=== PATIENT | female | born 1940 | race Caucasian/White ===

== ENCOUNTER 2017-03-11 16:38 | Outpatient (CLI) ==
[2017-03-11 16:52] LABS: BASOPHILS # (AUTO) 0.1 K/uL (0-0.2); BASOPHILS % (AUTO) 0.8 % (0.0-3.0); EOSINOPHILS # (AUTO) 0.3 K/ul (0.0-0.7); EOSINOPHILS % (AUTO) 4.7 % (0.0-7.0); HEMOGLOBIN 14.4 g/dl (12.0-16.0); IMMATURE GRANULOCYTE % (AUTO) 0.3 % (0.0-5.0); LYMPHOCYTES # (AUTO) 1.6 K/uL (0.60-3.4); LYMPHOCYTES % (AUTO) 22.9 (10.0-50.0); MEAN CORPUSCULAR HEMOGLOBIN 28.6 pg (27.0-31.0); MEAN CORPUSCULAR HGB CONC 32.7 (31.8-35.4); MEAN CORPUSCULAR VOLUME 87.3 fl (81.0-99.0); MONOCYTES # (AUTO) 0.6 K/uL (0.4-2.0); MONOCYTES % (AUTO) 7.9 (0-10); NEUTROPHILS # (AUTO) 4.5 K/ul (2.0-6.9); NEUTROPHILS % (AUTO) 63.4; PLATELET COUNT 309 10^3/uL (140-440); RED BLOOD COUNT 5.04 10^6/ul (4.20-5.40); WHITE BLOOD COUNT 7.17 K/ul (4.6-10.2)
[2017-03-11 16:53] LABS: BILIRUBIN,URINE Negative (NEGATIVE); KETONES,URINE Negative (NEGATIVE); LEUKOCYTE ESTERASE ,URINE 1+ (NEGATIVE); NITRITE,URINE Negative (NEGATIVE); PROTEIN,URINE Negative (NEGATIVE); URINE, BLOOD Trace-lysed (NEGATIVE)
[2017-03-11 16:58] LABS: ADD URINE MICROSCOPIC YES
[2017-03-11 16:59] LABS: BACTERIA,URINE 2+ (NOT PRESENT)
[2017-03-11 17:23] LABS: ALBUMIN 3.7 g/dL (3.4-5.0); ALBUMIN/GLOBULIN RATIO 0.86; ANION GAP 14.5; BILIRUBIN,TOTAL 0.34 mg/dL (0.00-1.20); CALCIUM 9.7 mg/dL (8.2-10.2); CHOL/HDL RATIO 3.4 (4.5-5.5); CREATININE 0.7 mg/dL (0.60-1.30); POTASSIUM 3.5 mmol/L (3.5-5.10)
== END 2017-03-11 16:39 | disposition home or self-care (01) ==
LOC: LAB 16:38
PROVIDERS: ATTEND General Practice
DX: E78.4 Other hyperlipidemia (principal); I10 Essential (primary) hypertension; Z79.899 Other long term (current) drug therapy
CPT/HCPCS: 36415; 80053; 80061; 81001; 84443; 85025; 87086

== ENCOUNTER 2017-11-18 14:10 | Outpatient (CLI) ==
--- NOTE | 2017-11-18 15:46 | DI ---
EXAM: Three views of the paranasal sinuses. History: Sinus pressure Findings: Evaluation is difficult due to overlapping osseous and soft tissue structures. No obvious fractures are seen. No distinct air-fluid levels are seen within the sinuses. Impression: No acute findings
== END 2017-11-18 14:11 | disposition home or self-care (01) ==
LOC: FCC-LAB 14:10 → RAD 14:11
PROVIDERS: ATTEND General Practice
DX: J34.89 Other specified disorders of nose and nasal sinuses (principal); R30.0 Dysuria
CPT/HCPCS: 81001; 87086; 87186